=== PATIENT | female | born 1965 | race Hispanic/Latino ===

== ENCOUNTER 2020-05-24 14:23 | Outpatient (CLI) | payer OTHER ==
--- NOTE | 2020-05-24 15:35 | Mammography Report ---
DIGITAL SCREENING MAMMOGRAM WITH CAD, 05/24/2020 CLINICAL INFORMATION / INDICATION: Routine screening mammography. SCREENING MAMMOGRAM TECHNIQUE: Digital bilateral 2D mammography was obtained in the craniocaudal and mediolateral obliqu e projections. This examination was interpreted with the benefit of Computer-Aided Detection analysis . COMPARISON: 05/10/2018 and 05/12/2019 FINDINGS: Breast Density: There are scattered areas of fibroglandular density. No dominant mass, suspicious calcifications, or architectural distortion in the right breast. There is architectural distortion in the 3:00 position of the left breast IMPRESSION: Architectural distortion on the left requires further evaluation Follow up recommendation: Special View: Spot BI-RADS Category 0: Incomplete. Needs additional imaging evaluation and/or prior mammograms for yara ramirez. A "normal" or negative report should not discourage follow up or biopsy of a clinically significant f inding. A written summary of these findings will be mailed to the patient. The patient will be entered into a mammography reporting system which will generate a reminder letter for the patient's next appointmen t at the appropriate interval. The [employer] recommends yearly mammograms starting at age 40 and continuing as l lukas as a woman is in good health. Breast MRI is recommended for women with an approximate 20-25% or greater lifetime risk of breast cancer, including women with a strong family history of breast or ova jessi cancer or who have been treated for Hodgkin's disease. Signer Name: Cooper Lara MD Signed: 05/24/2020 3:30 PM Workstation Name: [email or web address]
== END 2020-05-24 14:24 | disposition home or self-care (01) ==
LOC: SPVWC 14:23
PROVIDERS: ATTEND Surgery
DX: Z12.31 Encounter for screening mammogram for malignant neoplasm of breast (principal)
CPT/HCPCS: 77063; 77067

== ENCOUNTER 2020-06-08 14:46 | Outpatient (CLI) | payer OTHER ==
--- NOTE | 2020-06-08 16:30 | Ultrasound Report ---
LEFT DIGITAL DIAGNOSTIC MAMMOGRAM WITH CAD CONVENTIONAL, 06/08/2020 LEFT LIMITED BREAST ULTRASOUND CLINICAL INFORMATION / INDICATION: Patient presents as a callback from screening mammogram for furthe r evaluation of architectural distortion in the left breast. ABN MAMMO TECHNIQUE: Digital left mammographic imaging was performed. Spot compression views were obtained. Ward ited ultrasound was performed. This examination was interpreted with the benefit of Computer-Aided De tection (CAD) analysis. COMPARISON: Prior mammogram 05/24/2020 FINDINGS: Breast Density: There are scattered areas of fibroglandular density. MAMMOGRAPHIC FINDINGS: There is a persistent area of architectural distortion seen in the 2 to 3:00 p osition of the left breast, middle to posterior depth, measuring up to approximately 2 cm in extent. ULTRASOUND FINDINGS: Targeted ultrasound evaluation was performed of the area of interest. Targeted ultrasound of the upper outer quadrant of the left breast reveals normal fibroglandular tissue. Ther e is no sonographic correlate for the area of architectural distortion seen mammographically. IMPRESSION: 1. Persistent area of architectural distortion in the upper outer quadrant of the left breast without sonographic correlate. This is considered suspicious for malignancy, recommend tomosynthesis capable stereotactic biopsy versus wire localized excision. Follow up recommendation: Biopsy BI-RADS Category 4: Suspicious for Malignancy. A "normal" or negative report should not discourage follow up or biopsy of a clinically significant f inding. A written summary of these findings will be mailed to the patient. The patient will be entered into a mammography reporting system which will generate a reminder letter for the patient's next appointmen t at the appropriate interval. According to the [employer], yearly mammograms are recommended starting at age 40 and continuing as long as a woman is in good health. Breast MRI is recommended for women with an deandra roximately 20-25% or greater lifetime risk of breast cancer, including women with a strong family his tory of breast or ovarian cancer and women who have been treated for Hodgkin's disease. Signer Name: Liv Ferris MD Signed: 06/08/2020 4:26 PM Workstation Name: [id number]
== END 2020-06-08 14:47 | disposition home or self-care (01) ==
LOC: SPVWC 14:46
PROVIDERS: ATTEND Surgery
DX: R92.8 Other abnormal and inconclusive findings on diagnostic imaging of breast (principal)

== ENCOUNTER 2020-06-30 13:51 | Outpatient (CLI) | payer OTHER ==
--- NOTE | 2020-07-01 14:05 | Mammography Report ---
STEREOTACTIC GUIDED LEFT BREAST BIOPSY, 07/01/2020 CLINICAL INFORMATION / INDICATION: Left breast architectural distortion. COMPARISON: 06/08/2020 diagnostic left mammogram and left breast ultrasound. PROCEDURE: Risks, benefits, and indications to the procedure were discussed with the patient in detail, includin g bleeding, infection, hematoma formation, and inadequate tissue sampling. The patient agreed to proc eed with both verbal and written consent. A timeout procedure was performed with 2 patient identifier s. The patient was placed in the prone position on the biopsy table. Targeted stereotactic images were o btained of the area of interest. The targeted area was identified and coordinates were determined. A safe stroke margin was noted, but the architectural distortion was not well visualized compared to th e prior mammograms. Also, multiple large vessels overlied the expected location of the architectural distortion despite variations in patient positioning. The patient was counseled of the risk of increa sed bleeding associated with proceeding as well as the suboptimally visibility of the architectural d istortion. She decided not to proceed with the biopsy. IMPRESSION: Technically unsuccessful stereotactic guided left breast biopsy as detailed above. A breast MRI woul d be helpful for further evaluation. This lesion could be amenable to MR guided biopsy depending on t he MRI findings. Alternatively tomosynthesis guided stereotactic biopsy may be performed. Signer Name: Manpreet Goodwin MD Signed: 07/01/2020 2:00 PM Workstation Name: [id number]
== END 2020-06-30 13:52 | disposition home or self-care (01) ==
LOC: SPVWC 13:51
PROVIDERS: ATTEND Surgery
DX: R92.8 Other abnormal and inconclusive findings on diagnostic imaging of breast (principal); N64.89 Other specified disorders of breast; Z79.899 Other long term (current) drug therapy; M19.90 Unspecified osteoarthritis, unspecified site

== ENCOUNTER 2020-07-21 13:47 | Outpatient (CLI) | payer OTHER ==
--- NOTE | 2020-07-21 16:03 | Magnetic Resonance Report ---
BILATERAL BREAST MRI WITH AND WITHOUT CONTRAST CLINICAL INFORMATION/INDICATION: The patient has a history of abnormal mammogram with an area of arch itectural distortion/mass in the upper outer quadrant of the left breast. Stereotactic biopsy was att empted but this area could not be well visualized. MRI is done for additional evaluation. TECHNICAL: Axial T1 and T2-weighted fat sat images were obtained precontrast. Gadolinium-based contra st was injected intravenously and serial axial T1 weighted images with fat saturation were obtained. 3-D MIP projections, kinetic analysis and subtraction imaging was utilized to evaluate. A dedicated 8 -channel breast coil was used for image acquisition. COMPARISON: Screening mammogram, 05/24/2020. Diagnostic mammogram and ultrasound, 06/08/2020 FINDINGS: There is low level background enhancement within both breasts. There are scattered fibroglandular el ements in both breasts. Right breast: No dominant mass or suspicious area of enhancement is seen in the right breast. Left breast: There is an irregular area of masslike enhancement at the 1:00 position posterior depth measuring 3.3 x 1.6 cm. This is located 9.8 cm from the nipple and 3.8 cm from the chest wall. This c orresponds to the architectural distortion seen on the mammogram. This finding is best visualized on axial image 514 of series 6. No additional separate suspicious area of enhancement is identified. Axilla: No pathologically enlarged axillary lymph nodes are identified. Additional findings: Limited imaging of the thorax and upper abdomen demonstrates no focal abnormalit y. IMPRESSION: 1. Irregular enhancing masslike area in the left breast at the 1:00 position as described which corre sponds to the mammographic abnormality. Findings are highly suggestive for neoplasm. Considerations f or biopsy would include MRI guided biopsy or needle localization and surgical excision. 2. No MRI abnormality of the right breast. Follow up recommendation: Surgical consult. The patient has follow-up scheduled with Dr. Vines. BI-RADS Category 5: Highly Suggestive of Malignancy. Signer Name: Blanca Cordova MD Signed: 07/21/2020 3:59 PM Workstation Name: [id number]
== END 2020-07-21 13:48 | disposition home or self-care (01) ==
LOC: SPVIMAG 13:47
PROVIDERS: ATTEND Surgery
DX: R92.2 Inconclusive mammogram (principal); Z80.3 Family history of malignant neoplasm of breast
CPT/HCPCS: A9577; C8908; 77049

== ENCOUNTER 2020-08-11 09:46 | Outpatient (CLI) | payer OTHER ==
--- NOTE | 2020-08-11 14:11 | Magnetic Resonance Report ---
MR GUIDED VACUUM-ASSISTED BIOPSY OF THE LEFT BREAST INDICATION: Area of architectural distortion mammographically shows abnormal enhancement on MR COMPARISON: MR breast 07/21/2020, left mammogram 06/08/2020, bilateral mammography 05/24/2020 CONSENT: Procedure was discussed at length in advance with the patient including possible risks and b enefits. The possibility of bleeding was discussed. Post care issues were discussed. Opportunity for questions was given. Patient is not on anticoagulant therapy and does not report pertinent allergies. CONTRAST: 15 cc MultiHance IV PROCEDURE: The area of distortion and abnormal enhancement in the lateral mid to posterior left breas t was targeted on the postcontrast MR images. Using local anesthesia and aseptic technique, a [employer] 8 gauge biopsy needle was placed. Confirmation images were obtained showing satisfactory needle p lacement. Multiple core biopsies were performed with specimens sent for pathologic analysis. Postbiop sy images showed excellent cavity placement. Metallic clip was placed at the site. Device was withdra wn and site was secured. Patient was then escorted for post biopsy mammogram. Patient tolerated the p rocedure well. COMPLICATIONS: No immediate complications occurred. IMPRESSION: Successful MR guided left breast biopsy Signer Name: Herbie Conley MD Signed: 08/11/2020 2:07 PM Workstation Name: [id number]
== END 2020-08-11 09:47 | disposition home or self-care (01) ==
LOC: SPVIMAG 09:46
PROVIDERS: ATTEND Surgery
DX: R92.8 Other abnormal and inconclusive findings on diagnostic imaging of breast (principal); M19.90 Unspecified osteoarthritis, unspecified site; N64.89 Other specified disorders of breast; N60.12 Diffuse cystic mastopathy of left breast; N60.82 Other benign mammary dysplasias of left breast; Z79.899 Other long term (current) drug therapy
CPT/HCPCS: 19085; 77065; 88305; A4648; A9577

== ENCOUNTER 2020-09-29 06:25 | Day surgery (SDC) | payer OTHER ==
[2020-09-27 14:44] LABS: Hematocrit 39.4 % (30.3-42.9); Hemoglobin 13.7 gm/dl (10.1-14.3); Mean Corpuscular HGB Conc 35 % (30-34); Mean Corpuscular Volume 81 fl (79-97); Platelet Count 304 K/mm3 (140-440); Red Blood Count 4.85 M/mm3 (3.65-5.03); Red Cell Distribution Width 13.4 % (13.2-15.2)
[2020-09-27 15:12] VITALS: BP 121/67
[~2020-09-29 06:25] MED LIST: ceFAZolin/Water 2 GM/20 ML 2 GM/20 ML SYRINGE IV NR
[2020-09-29] MEDS ORDERED: LACTATED RINGERS 1,000 ML IV SCH (06:30)
[2020-09-29] MEDS ORDERED: BACTERIOSTATIC SODIUM CHLORIDE 0.9% 30 ML VIAL INFILTRATI ONE (06:32)
[2020-09-29] MEDS ORDERED: LIDOCAINE MPF (2%) 20 MG/1 ML VIAL 5 ML ONE (07:17)
[2020-09-29] MEDS ORDERED: HYDROmorphone 1 MG/1 ML INJ ONE (07:17)
[2020-09-29] MEDS ORDERED: propofoL 200 MG/20 ML VIAL IV ONE (07:17)
[2020-10-04] MEDS ORDERED: CELECOXIB 200 MG CAP PO NR (06:00)
[2020-10-04] MEDS ORDERED: LACTATED RINGERS 1,000 ML IV SCH (06:00)
[2020-10-04] MEDS ORDERED: MIDAZOLAM 2 MG/2 ML INJ IV NR (06:00)
[2020-10-04] MEDS ORDERED: GABAPENTIN 300 MG CAP PO NR (06:00)
[2020-10-04] MEDS ORDERED: ACETAMINOPHEN 500 MG TAB PO SCH (06:00)
== END 2020-09-29 06:26 | disposition home or self-care (01) ==
LOC: OR 06:25
PROVIDERS: ATTEND Surgery
DX: N63.20 Unspecified lump in the left breast, unspecified quadrant (principal); Z20.822 Contact with and (suspected) exposure to COVID-19; Z53.8 Procedure and treatment not carried out for other reasons; M19.90 Unspecified osteoarthritis, unspecified site; E03.9 Hypothyroidism, unspecified; Z72.89 Other problems related to lifestyle; Z98.890 Other specified postprocedural states; Z90.710 Acquired absence of both cervix and uterus; Z88.6 Allergy status to analgesic agent; Z88.8 Allergy status to other drugs, medicaments and biological substances; Z79.899 Other long term (current) drug therapy
CPT/HCPCS: 36415; 85027; U0003; J1170; J2704; J7120

== ENCOUNTER 2020-10-04 06:48 | Day surgery (SDC) | payer OTHER ==
[2020-10-04] MEDS ORDERED: LIDOCAINE (1%) 10 MG/1 ML VIAL 20 ML MDV ONE ×2 (07:42→11:09)
[2020-10-04] MEDS ORDERED: ONDANSETRON 4 MG/2 ML INJ IV PRN (07:47)
[2020-10-04] MEDS ORDERED: ACETAMINOPHEN 500 MG TAB PO NR (07:48)
[2020-10-04] MEDS ORDERED: HYDROmorphone 1 MG/1 ML INJ IV PRN (08:00)
[2020-10-04] MEDS ORDERED: CELECOXIB 200 MG CAP PO NR (08:00)
[2020-10-04] MEDS ORDERED: GABAPENTIN 300 MG CAP PO NR (08:00)
[2020-10-04] MEDS ORDERED: LACTATED RINGERS 1,000 ML IV SCH (08:00)
[2020-10-04] MEDS ORDERED: MIDAZOLAM 2 MG/2 ML INJ IV NR (08:00)
[2020-10-04] MEDS ORDERED: GABAPENTIN 500 MG/10 ML ORAL LIQD PO NR (08:25)
[2020-10-04] MEDS ORDERED: ACETAMINOPHEN 325 MG/10.15 ML ORAL LIQD UNIT DOSE PO NR (08:25)
[2020-10-04] MEDS ORDERED: ACETAMINOPHEN 325 MG/10.15 ML ORAL LIQD UNIT DOSE ONE (08:35)
[2020-10-04] MEDS ORDERED: GABAPENTIN 500 MG/10 ML ORAL LIQD ONE (08:36)
--- NOTE | 2020-10-04 08:44 | Anesthesia Consultation ---
Anesthesia Consult and Med Hx Date of service: 10/04/20 - Airway Anesthetic Teeth Evaluation: Good, Crowns ROM Head & Neck: Adequate Mental/Hyoid Distance: Adequate Mallampati Class: Class II Intubation Access Assessment: Probably Good - Pre-Operative Health Status ASA Pre-Surgery Classification: ASA2 Proposed Anesthetic Plan: General - Pulmonary Hx Smoking: No Hx Respiratory Symptoms: No - Cardiovascular System Hx Hypertension: No - Central Nervous System CVA: No - Endocrine Hx Renal Disease: No Hx Liver Disease: No Hx Insulin Dependent Diabetes: No Hx Non-Insulin Dependent Diabetes: No Hx Hypothyroidism: Yes - Other Systems Hx Cancer: Yes (hx thyroid ca s/p radiation) - Additional Comments Anesthesia Medical History Comments: No hx anesthetic complications.
--- NOTE | 2020-10-04 08:45 | Anesthesia Day of Surgery ---
Anesthesia Day of Surgery - Day of Surgery Patient Examined: Yes Patient H&P Reviewed: Yes Patient is NPO: Yes
[2020-10-04] MEDS ORDERED: LIDOCAINE MPF (2%) 20 MG/1 ML VIAL 5 ML ONE (09:02)
[2020-10-04] MEDS ORDERED: fentaNYL 100 MCG/2 ML INJ ONE (09:02)
[2020-10-04] MEDS ORDERED: propofoL 200 MG/20 ML VIAL IV ONE (09:03)
[2020-10-04] MEDS ORDERED: VANCOMYCIN/NS 1 GM/250 ML 1 GM/250 ML BAG IV NR (10:00)
[2020-10-04] MEDS ORDERED: ceFAZolin/STERILE WATER 2 GM/20 ML SYRINGE IV NR (10:00)
--- NOTE | 2020-10-04 10:05 | Short Stay Summary ---
Short Stay Documentation Date of service: 10/04/20 - History H&P: obtained from office - Allergies and Medications Current Medications: Allergies amoxicillin [From Augmentin] Adverse Reaction (Verified 09/29/20 06:38) ABDOMINAL PAIN clavulanic acid [From Augmentin] Adverse Reaction (Verified 09/29/20 06:38) ABDOMINAL PAIN Home Medications Medication Instructions Recorded Confirmed Last Taken Type Synthroid 100 mcg PO DAILY 09/20/20 09/20/20 Unknown History Ibuprofen [Motrin 800 MG tab] 800 mg PO Q8HR PRN #12 tablet 10/04/20 Unknown Rx Active Medications Celecoxib (Celecoxib 200 Mg Cap) 200 mg PO PREOP NR Stop: 10/04/20 13:00 Hydromorphone HCl (Hydromorphone 1 Mg/1 Ml Inj) 0.5 mg IV Q10MIN PRN PRN Reason: Pain , Severe (7-10) Stop: 10/04/20 20:00 Lactated Ringer's (Lactated Ringers) 1,000 mls @ 100 mls/hr IV DIRECT GWYN Vancomycin HCl (Vancomycin/Ns 1 Gm/250 Ml) 1 gm in 250 mls @ 167.007 mls/hr IV PREOP NR; Protocol Stop: 10/04/20 12:00 Midazolam HCl (Midazolam 2 Mg/2 Ml Inj) 2 mg IV PREOP NR Stop: 10/04/20 23:59 Ondansetron HCl (Ondansetron 4 Mg/2 Ml Inj) 4 mg IV ONCE PRN PRN Reason: Nausea And Vomiting Stop: 10/04/20 13:00 - Brief post op/procedure progress note Date of procedure: 10/04/20 Pre-op diagnosis: Left breast asymmetry Post-op diagnosis: same Procedure: Left needle localization excisional biopsy Anesthesia: GETA Findings: Left wire and clip present within radiographspecimen Surgeon: LEANDER LEZAMA Estimated blood loss: minimal Pathology: list (left excisional biopsy) Specimen disposition: to lab Condition: stable - Disposition Condition at discharge: Good Disposition: DC-01 TO HOME OR SELFCARE Short Stay Discharge Plan Activity: other (no heavy lifting) Diet: regular Wound: keep clean and dry (may shower in 48 hours; no baths; wear breast binder) Follow up with: LEANDER LEZAMA MD [Staff Physician] - 7 Days Prescriptions: Ibuprofen [Motrin 800 MG tab] 800 mg PO Q8HR PRN #12 tablet PRN Reason: pain
--- NOTE | 2020-10-04 10:09 | Operative Report ---
Operative Report Operative Report: Operative Report: October 04, 2020 Preoperative diagnosis: Left breast asymmetry of the upper outer quadrant Postoperative diagnosis: Same Procedure: Left needle localization breast mass excisional biopsy of the upper outer quadrant Surgeon: Krupa Vines MD As[employer] Brake Lining Finisher: Katlin Coyle MD Anesthesia: General Findings: Left wire and clip present within radiograph specimen Complications: None EBL: Minimal (less than 25 cc) Disposition: PACU in good condition Indications for operative procedure: This is a 55 year old lady with recent abnormal screening and diagnostic mamamgoram with findings of upper outer quadrant asymmtery. Left stereotactic biopsy unable to be performed. Breast MRI obtained with findings consistent of correlating breast asymmetery. Breast MRI guided biopsy performed with discordant findings and recommendations to proceed with left breast excisional biopsy to rule out malignancy. She wished to proceed with the above procedure. Procedure in detail: The patient was taken to radiology for wire placement for localization known area of concern. Patient was then taken to the operating room. Gen. anesthesia was administered. Left breast and axilla were prepped and draped in the normal sterile operative fashion. The wire was identified laterall y around 2/3:00 position. Timeout was performed. Attention was then taken towards the left breast. Lateral breast incision was made around the 2:30/3:00 position with a 15 blade knife and dissection taken down to subcutaneous tissues. First began raising of the superior flap with removal of the wire from the skin with dissection take down posteriorly past the wire, followed by raising of the inferior flap, medial flap and lateral flap with all flaps taken down posteriorly past the wire. The breast area of concern was appropriately removed posteriorly with the aid of the Bovie cautery. The wire was not encountered. Specimen was marked and then sent to pathology and radiology; radiograph specimen with wire and clip present. Breast cavity was anesthesized with 1% lidocaine mixed with quarter percent Marcaine without epinephrine. Breast cavity was irrigated and hemostasis was obtained. The posterior deep breast tissues were approximated and closed using interrupted 3-0 Vicryl. The subcutaneous tissues were approximated and closed using interrupted 3-0 Vicryl followed by closing of the skin with a running 4-0 Monocryl and skin affix. The patient tolerated surgery very well and she was awaken from anesthesia without any complication and transported to PACU in good condition.
[2020-10-04] MEDS ORDERED: WATER FOR IRRIG STERILE 1,500 ML BOTTLE IR ONE (11:00)
[2020-10-04] MEDS ORDERED: dexAMETHasone 20 MG/5 ML VIAL ONE (11:08)
[2020-10-04] MEDS ORDERED: ONDANSETRON 4 MG/2 ML INJ ONE (11:08)
[2020-10-04] MEDS ORDERED: HYDROmorphone 1 MG/1 ML INJ ONE (11:08)
[2020-10-04] MEDS ORDERED: BUPIVACAINE/PF (0.25%) 2.5 MG/ML 30 ML VIAL INFILTRATI ONE ×2 (11:09→11:30)
--- NOTE | 2020-10-04 11:27 | Mammography Report ---
MAMMOGRAPHIC GUIDED LEFT BREAST NEEDLE LOCALIZATION, 10/04/2020 CLINICAL INFORMATION / INDICATION: Left breast cancer, papilloma. COMPARISON: 08/11/2020 PROCEDURE: Risks, benefits and indications to the procedure were discussed with the patient. The patient agreed to proceed with both verbal and written consent. A timeout procedure was performed with 2 patient flory ntifiers. The breast was prepped with betadine in the usual sterile fashion. Approximately 5 cc of Lidocaine 1% was used for local anesthesia. Under direct digital mammographic guidance, a localization wire was p laced in satisfactory position with distal tip traversing the targeted lesion. Post-biopsy mammogram confirms satisfactory positioning of the localization wire. The wire was secured to the skin with a s terile dressing. The patient tolerated procedure without difficulty. No complications were encountered. IMPRESSION: 1. Satisfactory mammographic guided wire localization of the left breast. Signer Name: Ac Lange Jr, MD Signed: 10/04/2020 11:23 AM Workstation Name: [id number]
[2020-10-04] MEDS ORDERED: LIDOCAINE (1%) 10 MG/1 ML VIAL 20 ML MDV INFILTRATI ONE (11:31)
--- NOTE | 2020-10-04 13:46 | Post Anesthesia Evaluation ---
- Post Anesthesia Evaluation Patient Participated: Yes Airway Patent: Yes Stable Respiratory Function: Yes Nausea/Vomiting: No Temp > 96.8F: Yes Pain Manageable: Yes Adequeate Hydration: Yes Anesthesia Complications: No
[2020-10-04 13:57] VITALS: BP 113/78
--- NOTE | 2020-10-04 18:05 | Mammography Report ---
BREAST SPECIMEN RADIOGRAPH HISTORY: Lumpectomy FINDINGS/IMPRESSION: The submitted radiograph or radiographs demonstrate(s) the presence of a biopsy marker and distal asp ect of a localization wire within soft tissue, as expected. Signer Name: Alexandra Sigala MD Signed: 10/04/2020 6:01 PM Workstation Name: [id number]
== END 2020-10-04 12:50 | disposition home or self-care (01) ==
LOC: OR 06:48
PROVIDERS: ATTEND Surgery
DX: N64.89 Other specified disorders of breast (principal); N63.21 Unspecified lump in the left breast, upper outer quadrant; E03.9 Hypothyroidism, unspecified; M19.90 Unspecified osteoarthritis, unspecified site; Z79.899 Other long term (current) drug therapy; Z88.6 Allergy status to analgesic agent; Z88.8 Allergy status to other drugs, medicaments and biological substances; Z90.710 Acquired absence of both cervix and uterus; Z98.890 Other specified postprocedural states; Z85.850 Personal history of malignant neoplasm of thyroid
CPT/HCPCS: 19125; 19281; 76098; 88307; 88341; 88342; A4648; J1100; J1170; J2250; J2405; J2704; J3010; J3370; J7120